=== PATIENT | female | born 1980 | race Caucasian/White ===

== ENCOUNTER 2018-10-16 13:05 | Emergency (ER) | payer BC ==
[2018-10-16 13:26] VITALS: BP 109/76
[2018-10-16 13:56] LABS: Influenza A Molecular NEGATIVE (Negative); Influenza B Molecular NEGATIVE (Negative)
[2018-10-16] MEDS ORDERED: Acetaminophen TAB* 325 MG PO ONE (14:42)
--- NOTE | 2018-10-16 14:47 | UC ---
FLU HPI - HPI Summary HPI Summary: 38-year-old woman comes in with a chief complaint of bodyaches fevers and shortness of breath. 2 days ago the patient started with increased urinary frequency and lower abdominal cramping and pain. Patient felt she had a urinary tract infection she had a home urine dip which she tells me indicated she did have urinary tract infection. She then went to an online prescribing website and they prescribed her nitrofurantoin. She started to nitrofurantoin yesterday morning she took one dose then and then one dose last evening. Urinary tract infection symptoms and the abdominal cramping have almost completely gone away however during the night she woke up with generalized body aches fever and shortness of breath. Shortness of breath was improved when she sat up and walked around. Ibuprofen did help the symptoms some also. No rashes no hives. She complains of pain in the back to include the flanks and also the thighs. She has had some bronchospasm in the past and states she did not hear or feel any wheezing. - History of Current Complaint Chief Complaint: UCRespiratory Stated Complaint: SOB,ACHY,FATIGUE Time Seen by Provider: 10/16/18 14:19 Hx Last Menstrual Period: 09/2018 Pain Intensity: 7 - Allergy/Home Medications Allergies/Adverse Reactions: Allergies Allergy/AdvReac Type Severity Reaction Status Date / Time diphenhydramine Allergy Hives Verified 10/16/18 13:29 [From Benadryl] ?sulfa Allergy thrush Uncoded 10/16/18 13:29 Home Medications: Home Medications L.acidoph,Paracasei, B.lactis [Probiotic] 1 each PO DAILY 10/16/18 [History Confirmed 10/16/18] Nitrofurantoin Macrocrystal [Nitrofurantoin] 100 mg PO BID 10/16/18 [History Confirmed 10/16/18] PMH/Surg Hx/FS Hx/Imm Hx Previously Healthy: Yes - Surgical History Surgical History: Yes Surgery Procedure, Year, and Place: female surgeries - Family History Known Family History: Positive: Non-Contributory - Social History Alcohol Use: Occasionally Substance Use Type: None Smoking Status (MU): Former Smoker Review of Systems All Other Systems Reviewed And Are Negative: Yes Constitutional: Positive: Fever, Chills Skin: Positive: Negative Eyes: Positive: Negative ENT: Positive: Negative Respiratory: Positive: Shortness Of Breath, Cough Gastrointestinal: Positive: Abdominal Pain, Vomiting - SEE HPI Genitourinary: Positive: Urgency Motor: Positive: Negative Neurovascular: Positive: Negative Musculoskeletal: Positive: Myalgia Neurological: Positive: Negative Psychological: Positive: Negative Is Patient Immunocompromised?: No Physical Exam Triage Information Reviewed: Yes Appearance: No Pain Distress, Well-Nourished, Ill-Appearing - MILD Vital Signs: Initial Vital Signs Temp 100.9 F 10/16/18 13:14 Pulse 89 10/16/18 13:14 Resp 20 10/16/18 13:14 BP 109/76 10/16/18 13:14 Pulse Ox 98 10/16/18 13:14 Vital Signs Reviewed: Yes Eye Exam: Normal Eyes: Positive: Conjunctiva Clear ENT: Positive: Pharynx normal, TMs normal Neck exam: Normal Neck: Positive: Nontender Respiratory: Positive: Lungs clear, Normal breath sounds, No respiratory distress, No accessory muscle use. Negative: Wheezing Cardiovascular: Positive: RRR Abdomen Description: Positive: Nontender, Soft Musculoskeletal Exam: Normal Musculoskeletal: Positive: Strength Intact, ROM Intact Neurological Exam: Normal Neurological: Positive: Alert, Muscle Tone Normal Psychological Exam: Normal Psychological: Positive: Age Appropriate Behavior Skin Exam: Normal Flu Course/Dx - Course Course Of Treatment: Flu test was negative. UA was also normal. This was discussed with the patient and her mother. Different possibilities for her condition include but not limited to reaction to nitrofurantoin, UTI turned into a pyelonephritis, an influenza-like illness. The plan at this time is to no longer take the nitrofurantoin and switch over to Augmentin to treat for possible infection. Patient has no hives at this time she reports that her shortness of breath has improved. We discussed getting a chest x-ray either now or if she does not improve. We also discussed getting lab work now or if she does not improve. At this time she prefers to not have the chest x-ray or blood work. Urine was sent for culture. Patient is a ibuprofen and Tylenol as needed for the fevers and body aches. I discussed with the patient and with her mother that if the patient does not improve or if she worsens she should go the emergency department as the exact cause of her symptoms is not clear at this time. - Differential Dx/Diagnosis Provider Diagnosis: Myalgia, Fever Discharge - Sign-Out/Discharge Documenting (check all that apply): Patient Departure All imaging exams completed and their final reports reviewed: No Studies - Discharge Plan Condition: Stable Disposition: HOME Prescriptions: Amoxicillin/Clavulanate TAB* [Augmentin TAB 875*] 875 mg PO BID #20 tab Patient Education Materials: Urinary Tract Infection in Women (ED) Referrals: [facility] [place] [facility] REFERRAL [Outside] Additional Instructions: FOLLOW UP WITH YOUR DOCTOR. THE CAUSE OF YOUR SYMPTOMS HAS NOT BEEN DETERMINED. THEREFORE, IF YOU DO NOT IMPROVE, GO TO THE EMERGENCY DEPARTMENT FOR FURTHER EVALUATION AND CARE. DO NOT TAKE ANY MORE NITROFURANTOIN (MACROBID). GO TO THE EMERGENCY DEPARTMENT FOR ANY WORSENING OF YOUR CONDITION; SHORTNESS OF BREATH, YOU FEEL ILL, YOU DO NOT IMPROVE OR QUESTIONS OR CONCERNS. - Billing Disposition and Condition Condition: STABLE Disposition: Home
== END 2018-10-16 14:53 | disposition home or self-care (01) ==
LOC: UCCORT 13:05
DX: M79.10 Myalgia, unspecified site (principal); R50.9 Fever, unspecified; R06.02 Shortness of breath; R35.0 Frequency of micturition; R10.30 Lower abdominal pain, unspecified; Z88.8 Allergy status to other drugs, medicaments and biological substances; Z87.891 Personal history of nicotine dependence
CPT/HCPCS: 81003; 87086; 99202; A9270-GY; G0463